=== PATIENT | male | born 1990 | race Caucasian/White ===

== ENCOUNTER 2017-04-15 11:05 | Emergency (ER) | payer BC ==
--- NOTE | 2017-04-15 12:19 | RAD ---
HISTORY: Left wrist and hand pain and injury COMPARISONS: None VIEWS: 6, Frontal, lateral, and oblique views of the left wrist with frontal and lateral views of the left hand FINDINGS: BONE DENSITY: Normal. BONES: There is no displaced fracture. JOINTS: There is no arthropathy. ALIGNMENT: There is no dislocation. SOFT TISSUES: Unremarkable. OTHER FINDINGS: None. IMPRESSION: NO ACUTE OSSEOUS INJURY TO THE LEFT WRIST OR LEFT HAND. IF SYMPTOMS PERSIST, RECOMMEND REPEAT IMAGING.
[2017-04-15] MEDS ORDERED: Ibuprofen TAB* 800 MG PO ONE (12:23)
[2017-04-15 12:48] VITALS: BP 127/78
--- NOTE | 2017-04-16 17:46 | ED ---
Lasha Bonds Angela, scribed for Santos Alcazar MD on 04/15/17 at 1140 . Upper Extremity Pain - HPI Summary HPI Summary: This pt is a 26 y/o male presenting to [facility] c/o left wrist pain s/p fall 1 week ago. Pt reports he was walking when he slipped on ice 1 week ago. Pt states he fell on his left hand. He denies head strike or LOC. Pt notes his pain is aggravated with movement and alleviated with rest. He denies any PMHx. - History of Current Complaint Chief Complaint: EDExtremityUpper Stated Complaint: LEFT WRIST INJURY Time Seen by Provider: 04/15/17 11:31 Hx Obtained From: Patient Mechanism Of Injury: Fall From Height Of: Onset/Duration: Started Days Ago, Still Present Timing: Lasting Days Severity Initially: Moderate Severity Currently: Moderate Pain Location: Wrist - left Aggravating Factor(s): Movement Alleviating Factor(s): Rest Associated Signs & Symptoms: Positive: Negative - Allergies/Home Medications Allergies/Adverse Reactions: Allergies Allergy/AdvReac Type Severity Reaction Status Date / Time No Known Allergies Allergy Verified 04/15/17 11:34 PMH/Surg Hx/FS Hx/Imm Hx Endocrine/Hematology History: Denies: Hx Diabetes Cardiovascular History: Denies: Hx Hypertension Infectious Disease History: No Infectious Disease History: Denies: Traveled Outside the [place] in Last 30 Days - Family History Known Family History: Positive: Hypertension, Diabetes, Other - high cholesterol - Social History Alcohol Use: Occasionally Substance Use Type: Reports: None Smoking Status (MU): Never Smoked Tobacco Review of Systems Negative: Fever, Chills ENT: Negative Cardiovascular: Negative Respiratory: Negative Gastrointestinal: Negative Musculoskeletal: Other - left wrist pain Negative: Headache All Other Systems Reviewed And Are Negative: Yes Physical Exam - Summary Physical Exam Summary: VITAL SIGNS: Reviewed. GENERAL: Patient is a well-developed and nourished male. Patient is not in any acute respiratory distress. HEAD AND FACE: No signs of trauma. No ecchymosis, hematomas or skull depressions. No sinus tenderness. EYES: PERRLA, EOMI x 2, No injected conjunctiva, no nystagmus. EARS: Hearing grossly intact. Ear canals and tympanic membranes are within normal limits. MOUTH: Oropharynx within normal limits. NECK: Supple, trachea is midline, no adenopathy, no JVD, no carotid bruit, no c- spine tenderness, neck with full ROM. CHEST: Symmetric, no tenderness at palpation LUNGS: Clear to auscultation bilaterally. No wheezing or crackles. CVS: Regular rate and rhythm, S1 and S2 present, no murmurs or gallops appreciated. ABDOMEN: Soft, non-tender. No signs of distention. No rebound no guarding, and no masses palpated. Bowel sounds are normal. EXTREMITIES: no edema, no cyanosis or clubbing. LUE: there is tenderness at the dorsal aspect of the left wrist. NEURO: Alert and oriented x 3. No acute neurological deficits. Speech is normal and follows commands. SKIN: Dry and warm Triage Information Reviewed: Yes Vital Signs On Initial Exam: Initial Vitals Temp Pulse Resp BP Pulse Ox 97.8 F 69 16 127/84 99 04/15/17 11:18 04/15/17 11:18 04/15/17 11:18 04/15/17 11:18 04/15/17 11:18 Vital Signs Reviewed: Yes Diagnostics - Vital Signs Vital Signs Temp Pulse Resp BP Pulse Ox 04/15/17 11:18 97.8 F 69 16 127/84 99 - Laboratory Lab Statement: Any lab studies that have been ordered have been reviewed, and results considered in the medical decision making process. - Radiology Left hand XR Xray Interpretation: No Acute Changes - IMPRESSION: No acute osseous injury to the left wrist or left hand. If symptoms persist, recommend repeat imaging. Dr. Alcazar has reviewed this radiology report. Radiology Interpretation Completed By: Radiologist Left wrist XR Xray Interpretation: No Acute Changes - IMPRESSION: No acute osseous injury to the left wrist or left hand. If symptoms persist, recommend repeat imaging. Dr. Alcazar has reviewed this radiology report. Radiology Interpretation Completed By: Radiologist Course/Dx - Course Course Of Treatment: This pt is a 26 y/o male presenting to [facility] c/o left wrist pain s/p fall 1 week ago. Pt reports he was walking when he slipped on ice 1 week ago. Pt states he fell on his left hand. He denies head strike or LOC. Pt notes his pain is aggravated with movement and alleviated with rest. He denies any PMHx. XR of the left wrist is negative for fracture or dislocation. Pt was given Toradol for the pain and was placed in a wrist splint. Therefore, he will be discharged home with follow up from his PCP. Pt is hemodynamically stable, alert and oriented x3. - Diagnoses Differential Diagnosis/HQI/PQRI: Positive: Bursitis, Contusion, Fracture (Closed ), Strain, Sprain Provider Diagnoses: Wrist pain Discharge - Discharge Plan Condition: Stable Disposition: HOME Patient Education Materials: Wrist Injury (ED) Referrals: Non Staff,Doctor [Primary Care Provider] - [facility] [Outside] - 3 Days Additional Instructions: Please follow up with your primary care provider. RETURN TO THE ED FOR ANY WORSENING SYMPTOMS. The documentation as recorded by the Lasha ulloa Angela accurately reflects the service I personally performed and the decisions made by , Santos Aclazar MD.
== END 2017-04-15 12:47 | disposition home or self-care (01) ==
LOC: ED 11:05
DX: M25.532 Pain in left wrist (principal); W00.0XXA Fall on same level due to ice and snow, initial encounter; Y93.01 Activity, walking, marching and hiking; Y92.9 Unspecified place or not applicable
CPT/HCPCS: 99282; A9270-GY

== ENCOUNTER 2018-10-22 23:43 | Emergency (ER) | payer BC, MEDICAID ==
[2018-10-23] MEDS ORDERED: Ibuprofen TAB* 400 MG PO ONE (02:54)
--- NOTE | 2018-10-23 02:56 | ED ---
Upper Extremity Pain - HPI Summary HPI Summary: Patient is a 28 y/o M presenting to ED with complaints of left wrist pain. He states that he had injured his left wrist 2-3 weeks ago. Per triage, "There is a lump on the posterior aspect of the wrist, thinks he may have fractured". He additionally notes that he has right arm numbness. He states that he does not take any medications. On triage, pain is rated 8/10, nothing is noted to aggravate/alleviate Sx. Home medications and allergies are reviewed. - History of Current Complaint Chief Complaint: EDExtremityUpper Stated Complaint: WRIST PAIN PER PT Time Seen by Provider: 10/23/18 02:41 Hx Obtained From: Patient Onset/Duration: Started Weeks Ago, Still Present Timing: Constant, Lasting Weeks Severity Currently: Severe Pain Location: Wrist - left wrist Aggravating Factor(s): Nothing Alleviating Factor(s): Nothing Associated Signs & Symptoms: Positive: Numbness/Tingling - right arm - Allergies/Home Medications Allergies/Adverse Reactions: Allergies Allergy/AdvReac Type Severity Reaction Status Date / Time No Known Allergies Allergy Verified 10/22/18 23:47 PMH/Surg Hx/FS Hx/Imm Hx Endocrine/Hematology History: Denies: Hx Diabetes Cardiovascular History: Denies: Hx Hypertension Sensory History: Denies: Hx Legally Blind, Hx Deafness Opthamlomology History: Denies: Hx Legally Blind EENT History: Denies: Hx Deafness Infectious Disease History: No Infectious Disease History: Denies: Traveled Outside the [place] in Last 30 Days - Family History Known Family History: Positive: Hypertension, Diabetes, Other - high cholesterol - Social History Alcohol Use: Occasionally Substance Use Type: Reports: None Smoking Status (MU): Never Smoked Tobacco Review of Systems Musculoskeletal: Other - positive - left wrist pain Positive: Numbness - right arm All Other Systems Reviewed And Are Negative: Yes Physical Exam - Summary Physical Exam Summary: VITAL SIGNS: Reviewed. GENERAL: Patient is a well-developed and nourished male who is lying comfortable in the stretcher. Patient is not in any acute respiratory distress. HEAD AND FACE: No signs of trauma. No ecchymosis, hematomas or skull depressions. No sinus tenderness. EYES: PERRLA, EOMI x 2, No injected conjunctiva, no nystagmus. EARS: Hearing grossly intact. Ear canals and tympanic membranes are within normal limits. MOUTH: Oropharynx within normal limits. NECK: Supple, trachea is midline, no adenopathy, no JVD, no carotid bruit, no c- spine tenderness, neck with full ROM CHEST: Symmetric, no tenderness at palpation LUNGS: Clear to auscultation bilaterally. No wheezing or crackles. CVS: Regular rate and rhythm, S1 and S2 present, no murmurs or gallops appreciated. ABDOMEN: Soft, non-tender. No signs of distention. No rebound no guarding, and no masses palpated. Bowel sounds are normal. EXTREMITIES: FROM, no edema, no cyanosis or clubbing. Mild tenderness with dorsiflexion of left wrist with resistance suggestive of tendinitis. NEURO: Alert and oriented x 3. No acute neurological deficits. Speech is normal and follows commands. SKIN: Dry and warm Triage Information Reviewed: Yes Vital Signs On Initial Exam: Initial Vitals Temp Pulse Resp BP Pulse Ox 97.8 F 73 16 153/96 97 10/22/18 23:45 10/22/18 23:45 10/22/18 23:45 10/22/18 23:45 10/22/18 23:45 Vital Signs Reviewed: Yes Diagnostics - Vital Signs Vital Signs Temp Pulse Resp BP Pulse Ox 10/23/18 01:46 98.0 F 66 15 124/83 98 10/22/18 23:45 97.8 F 73 16 153/96 97 - Laboratory Lab Statement: Any lab studies that have been ordered have been reviewed, and results considered in the medical decision making process. Course/Dx - Course Course Of Treatment: Patient is a 28 y/o M presenting to ED with complaints of left wrist pain. He states that he had injured his left wrist 2-3 weeks ago. Per triage, "There is a lump on the posterior aspect of the wrist, thinks he may have fractured". He additionally notes that he has right arm numbness. Patient has mild tenderness with dorsiflexion of left wrist with resistance suggestive of tendinitis. Patient was given ibuprofen 800 mg PO. Patient was discharged to home and will follow up with orthopedics within three days. - Diagnoses Provider Diagnoses: Tendonitis Discharge - Sign-Out/Discharge Documenting (check all that apply): Patient Departure - discharge Patient Received Moderate/Deep Sedation with Procedure: No - Discharge Plan Condition: Stable Disposition: HOME Prescriptions: Ibuprofen TAB* [Motrin TAB* 800 MG] 800 mg PO Q6H #30 tab Patient Education Materials: Tendinitis (ED) Referrals: [facility] [Outside] - 3 Days Sophia Eason MD [Medical Doctor] - 3 Days Additional Instructions: PLEASE RETURN TO ED FOR ANY NEW OR WORSENING SYMPTOMS. FOLLOW UP WITH YOUR PRIMARY CARE PHYSICIAN WITHIN THREE DAYS. - Attestation Statements Document Initiated by Scribe: Yes Documenting Scribe: KATELIN VILLALOBOS Provider For Whom Scribe is Documenting (Include Credential): ALLI CAMILO MD Scribe Attestation: IKATELIN, scribed for ALLI CAMILO MD on 10/23/18 at 0530. Status of Scribe Document: Ready
[2018-10-23 03:14] VITALS: BP 136/85
== END 2018-10-23 03:11 | disposition home or self-care (01) ==
LOC: ED 23:43
DX: M77.9 Enthesopathy, unspecified (principal)
CPT/HCPCS: 99282; A9270-GY